=== PATIENT | male | born 1960 | race African-American/Black ===

== ENCOUNTER 2017-12-26 16:29 | Inpatient (IN) | payer OTHER ==
[2017-12-26 20:23] VITALS: BMI 22.1
--- NOTE | 2017-12-26 20:46 | HP ---
COWS - Scale Resting Pulse: 0= [place] 80 or Below Sweatin= Chills/Flushing Restless Observation: 1= Difficult to Sit Still Pupil Size: 0= Normal to Room Light Bone or Joint Aches: 1= Mild Discomfort Runny Nose/ Eye Tearin= Runny Nose/Eyes GI Upset > 30mins: 2= Nausea/Diarrhea Tremor Observation: 0= None Yawning Observation: 1= 1-2x During Session Anxiety or Irritability: 1=Feels Anxious/Irritable Goose Flesh Skin: 3=Piloerection COWS Score: 12 Admission ROS S - HPI Chief Complaint: "I am a dope fine, I need help, I don't feel well" Allergies/Adverse Reactions: Allergies Allergy/AdvReac Type Severity Reaction Status Date / Time No Known Allergies Allergy Verified 12/26/17 21:02 History of Present Illness: 57 yo male with hx IV heroin and nicotine dependence is here seeking detox. PMHX: Hep C, depression, insomnia. Denies suicidal / homicidal ideation or suicide attempts. Reports attempted detox at [facility] in 6 months ago , left AMA after 2 days. Denies history of seizure. Reports hx of frequent blackouts, last time, 2 weeks ago. Denies hx of overdose. Reports no after care plans after completing detox. Exam Limitations: No Limitations - Ebola screening Have you traveled outside of the country in the last 21 days: No (N) Have you had contact with anyone from an Ebola affected area: No Have you been sick,other than usual withdrawal symptoms: No Do you have a fever: No - Review of Systems Constitutional: Chills, Loss of Appetite, Changes in sleep EENT: reports: Dental Problems (multiple missing teeth, loose) Respiratory: reports: No Symptoms reported Cardiac: reports: No Symptoms Reported GI: reports: Diarrhea, Poor Appetite, Poor Fluid Intake : reports: No Symptoms Reported Musculoskeletal: reports: Joint Pain Integumentary: reports: No Symptoms Reported Neuro: reports: Tingling (left lower extremity) Endocrine: reports: No Symptoms Reported Hematology: reports: No Symptoms Reported Psychiatric: reports: No Sypmtoms Reported, Orientated x3, Agitated Other Systems: Reviewed and Negative Patient History - Patient Medical History Hx Anemia: No Hx Asthma: No Hx Chronic Obstructive Pulmonary Disease (COPD): No Hx Cancer: No Hx Cardiac Disorders: No Hx Hypertension: No Hx Hypercholesterolemia: No Hx Pacemaker: No HX Cerebrovascular Accident: No Hx Seizures: No Hx Dementia: No Hx Diabetes: No Hx Gastrointestinal Disorders: No Hx Liver Disease: Yes Hx Genitourinary Disorders: No Hx Sexually Transmitted Disorders: No Hx Renal Disease (ESRD): No Hx Thyroid Disease: No Hx Human Immunodeficiency Virus (HIV): No (declines testing today, unknown ) Hx Hepatitis C: Yes Hx Depression: Yes Hx Suicide Attempt: No Hx Bipolar Disorder: No Hx Schizophrenia: No - Patient Surgical History Past Surgical History: No Hx Neurologic Surgery: No Hx Cataract Extraction: No Hx Cardiac Surgery: No Hx Lung Surgery: No Hx Breast Surgery: No Hx Breast Biopsy: No Hx Abdominal Surgery: No Hx Appendectomy: No Hx Cholecystectomy: No Hx Genitourinary Surgery: No Hx Section: No Hx Orthopedic Surgery: No Hx Hysterectomy: No Anesthesia Reaction: No - PPD History Previous Implant?: No (reports prior hx of TB and tx ) PPD to be Administered?: No - Reproductive History Patient is a Female of Child Bearing Age (11 -55 yrs old): No - Smoking Cessation Smoking history: Current every day smoker Have you smoked in the past 12 months: Yes Aproximately how many cigarettes per day: 50 Hx Chewing Tobacco Use: No Initiated information on smoking cessation: Yes 'Breaking Loose' booklet given: 12/26/17 - Substance & Tx. History Hx Alcohol Use: No Hx Substance Use: No Substance Use Type: Heroin Hx Substance Use Treatment: Yes (Attempted detox at [facility] 6 months ago , left AMA ) - Substances Abused Heroin Route: Injection Frequency: Daily Amount used: 4 bags Age of first use: 34 Date of Last Use: 12/25/17 Family Disease History - Family Disease History Family History: Unable to Obtain Admission Physical Exam BHS - Vital Signs Vital Signs: Vital Signs - 24 hr 12/26/17 20:22 Temperature 97.8 F Pulse Rate 94 H Respiratory 18 Rate Blood Pressure 138/76 - Physical General Appearance: Yes: Disheveled, Thin, Irritable, Other (malodorous) HEENTM: Yes: EOMI, Hearing grossly Normal, Normal ENT Inspection, Normocephalic , Normal Voice, HAYLIE, Pharynx Normal, Tm's normal, Rhinorrhea, Other (dry mucous membranes, poor dentition) Respiratory: Yes: Chest Non-Tender, Lungs Clear, Normal Breath Sounds, No Respiratory Distress, No Accessory Muscle Use Neck: Yes: No masses,lesions,Nodules, Trachea in good position Breast: Yes: Breast Exam Deferred Cardiology: Yes: Regular Rhythm, Regular Rate Abdominal: Yes: Normal Bowel Sounds, Non Tender, Flat, Soft Genitourinary: Yes: Within Normal Limits Back: Yes: Muscle Spasm Musculoskeletal: Yes: Other (kyphosis , use cane for ambualtion) Extremities: Yes: Normal Capillary Refill, Normal Inspection, Normal Range of Motion, Non-Tender 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: 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, Fully Oriented, Alert, Motor Strength 5/5, Normal Response, Depressed Affect Integumentary: Yes: Normal Color, Moist, Track Castelan (bilateral forarms without signs of infection) Lymphatic: Yes: Within Normal Limits - Diagnostic (1) Opioid dependence with withdrawal Current Visit: Yes Status: Acute (2) Depressed mood Current Visit: Yes Status: Acute (3) Use of cane as ambulatory aid Current Visit: Yes Status: Acute (4) Nicotine dependence Current Visit: Yes Status: Acute Qualifiers: Nicotine product type: cigarettes (5) IV drug user Current Visit: Yes Status: Acute Cleared for Admission [facility] - Detox or Rehab [facility] Level of Care: Medically Managed Detox Regimen/Protocol: Methadone [facility] Breath Alcohol Content Breath Alcohol Content: 0 Urine Drug Screen - Results Drug Screen Negative: No Urine Drug Screen Results: DEB-Cocaine, OPI-Opiates
[2017-12-26] MEDS ORDERED: guaiFENesin/D-METHORPHAN HB 10 ML UNIT-DOSE CUPS PO PRN (21:02)
[2017-12-26] MEDS ORDERED: diazePAM 5 MG TABLET PO PRN (21:02)
[2017-12-26] MEDS ORDERED: IBUPROFEN 400 MG TABLET (FP) PO PRN (21:02)
[2017-12-26] MEDS ORDERED: NICOTINE POLACRILEX 4 MG GUM BUC PRN (21:02)
[2017-12-26] MEDS ORDERED: MAGNESIUM HYDROX 2400MG/30ML ORAL SUSPENSION 30 ML CUP PO PRN (21:02)
[2017-12-26] MEDS ORDERED: MAG HYDROX/AL HYDROX/SIMETH 30 ML UNIT-DOSE CUP PO PRN (21:02)
[2017-12-26] MEDS ORDERED: MAGNESIUM CITRATE 300 ML BOTTLE PO PRN (21:02)
[2017-12-26] MEDS ORDERED: ACETAMINOPHEN 325 MG TABLET (FP) PO PRN (21:02)
[2017-12-26] MEDS ORDERED: MENTHOL/PHENOL 1 EACH UD MM PRN (21:02)
[2017-12-26] MEDS ORDERED: hydrOXYzine PAMOATE 50 MG CAPSULE (FP) PO PRN (21:02)
[2017-12-26] MEDS ORDERED: P-EPHED 60MG/TRIPROLIDI 2.5MG TABLET PO PRN (21:02)
[2017-12-26] MEDS ORDERED: LOPERAMIDE HCL 2 MG CAPSULE PO PRN (21:02)
[2017-12-26] MEDS ORDERED: METHADONE HCL 10 MG TABLET (FOR DETOX USE ONLY) PO ONE ×2 (21:45→23:00)
[2017-12-26] MEDS ORDERED: THIAMINE HCL 100 MG TABLET (FP) PO SCH (22:00)
[2017-12-26] MEDS ORDERED: MELATONIN 5 MG TABLETS PO PRN (22:00)
[2017-12-27 05:10] LABS: URINE APPEARANCE CLEAR; URINE BILIRUBIN NEGATIVE (<2.0 mg/dL); URINE BLOOD NEGATIVE (NEGATIVE); URINE COLOR YELLOW; URINE GLUCOSE (UA) NEGATIVE (NEGATIVE); URINE KETONE NEGATIVE (NEGATIVE); URINE LEUK ESTERASE NEGATIVE (NEGATIVE); URINE NITRITE NEGATIVE (NEGATIVE); URINE PROTEIN NEGATIVE (NEGATIVE); URINE UROBILINOGEN NEGATIVE mg/dL (0.2-1.0)
[2017-12-27 09:30] VITALS: BP 123/79; PULSE 78; TEMP 97.8
[2017-12-27] MEDS ORDERED: NICOTINE 21 MG/24 HOURS TOPICAL PATCH TD SCH (10:00)
[2017-12-27] MEDS ORDERED: PRENATAL VITAMINS W/ FOLIC ACID TABLET (FP) PO SCH (10:00)
[2017-12-27] MEDS ORDERED: METHADONE HCL 10 MG TABLET (FOR DETOX USE ONLY) PO ONE (10:00)
[2017-12-27 10:13] LABS: HEMATOCRIT 41.7 % (35.4-49); MCH 30.8 pg (25.7-33.7); MCHC 33.6 g/dl (32.0-35.9); MEAN CELL VOLUME 91.7 fl (80-96); MEAN PLT VOLUME 8.2 fl (7.5-11.1); PLATELET COUNT 203 K/MM3 (134-434); RBC 4.55 M/mm3 (4.00-5.60); RDW 14.4 % (11.9-15.9); WHITE BLOOD COUNT 10.4 K/mm3 (4.0-10.0)
[2017-12-27 10:44] LABS: BLOOD UREA NITROGEN 18 mg/dL (7-18); CALCIUM 8.4 mg/dL (8.5-10.1); CHLORIDE 107 mmol/L (98-107); POTASSIUM 3.9 mmol/L (3.5-5.1); SODIUM 135 mmol/L (136-145)
[2017-12-27 10:54] LABS: ALBUMIN 3.1 g/dl (3.4-5.0); ALK PHOS 109 U/L (45-117); ANION GAP 1 (8-16); BILIRUBIN,TOTAL 0.3 mg/dL (0.2-1.0); CO2 27 mmol/L (21-32); CREATININE 0.9 mg/dL (0.7-1.3); GLUCOSE,RANDOM 86 mg/dL (74-106); SGOT/AST 23 U/L (15-37); SGPT/ALT 21 U/L (12-78); TOT PROT 7.3 g/dl (6.4-8.2)
[2017-12-27] MEDS ORDERED: ONDANSETRON *ODT* 4 MG TABLET SL PRN (11:02)
--- NOTE | 2017-12-27 11:19 | PN ---
BHS COWS - Scale Resting Pulse: 1= [place] 81-100 Sweatin= Chills/Flushing Restless Observation: 3= Extraneous Movement Pupil Size: 0= Normal to Room Light Bone or Joint Aches: 4=Acute Joint/Muscle Pain Runny Nose/ Eye Tearin= Nasal Congestion GI Upset > 30mins: 1= Stomach Cramp Tremor Observation of Outstretched Hands: 1= Tremor Lucinda, Not Seen Yawning Observation: 1= 1-2x During Session Anxiety or Irritability: 2=Irritable/Anxious Goose Flesh Skin: 0=Smooth Skin COWS Score: 15 S Progress Note (SOAP) Subjective: PT C/O "TERRIBLE LEG CRAMPS', ANXIETY,SWEATS,NAUSEA/VOMITING, INTERMITTENT SLEEP. Objective: 12/27/17 11:19 Vital Signs Temperature 97.8 F 12/27/17 09:28 Pulse Rate 78 12/27/17 09:28 Respiratory Rate 20 12/27/17 09:28 Blood Pressure 123/79 12/27/17 09:28 O2 Sat by Pulse Oximetry (%) Laboratory Last Values WBC 10.4 K/mm3 (4.0-10.0) H 12/27/17 07:00 RBC 4.55 M/mm3 (4.00-5.60) 12/27/17 07:00 Hgb 14.0 GM/dL (11.7-16.9) 12/27/17 07:00 Hct 41.7 % (35.4-49) 12/27/17 07:00 MCV 91.7 fl (80-96) 12/27/17 07:00 MCH 30.8 pg (25.7-33.7) 12/27/17 07:00 MCHC 33.6 g/dl (32.0-35.9) 12/27/17 07:00 RDW 14.4 % (11.9-15.9) 12/27/17 07:00 Plt Count 203 K/MM3 (134-434) 12/27/17 07:00 MPV 8.2 fl (7.5-11.1) 12/27/17 07:00 Sodium 135 mmol/L (136-145) L 12/27/17 07:00 Potassium 3.9 mmol/L (3.5-5.1) 12/27/17 07:00 Chloride 107 mmol/L (98-107) 12/27/17 07:00 Carbon Dioxide 27 mmol/L (21-32) 12/27/17 07:00 Anion Gap 1 (8-16) L 12/27/17 07:00 BUN 18 mg/dL (7-18) 12/27/17 07:00 Creatinine 0.9 mg/dL (0.7-1.3) 12/27/17 07:00 Creat Clearance w eGFR > 60 (>60) 12/27/17 07:00 Random Glucose 86 mg/dL (74-106) 12/27/17 07:00 Calcium 8.4 mg/dL (8.5-10.1) L 12/27/17 07:00 Total Bilirubin 0.3 mg/dL (0.2-1.0) 12/27/17 07:00 AST 23 U/L (15-37) 12/27/17 07:00 ALT 21 U/L (12-78) 12/27/17 07:00 Alkaline Phosphatase 109 U/L (45-117) 12/27/17 07:00 Total Protein 7.3 g/dl (6.4-8.2) 12/27/17 07:00 Albumin 3.1 g/dl (3.4-5.0) L 12/27/17 07:00 Urine Color Yellow 12/27/17 00:42 Urine Appearance Clear 12/27/17 00:42 Urine pH 6.0 (5.0-8.0) 12/27/17 00:42 Ur Specific [place] 1.017 (1.001-1.035) 12/27/17 00:42 Urine Protein Negative (NEGATIVE) 12/27/17 00:42 Urine Glucose (UA) Negative (NEGATIVE) 12/27/17 00:42 Urine Ketones Negative (NEGATIVE) 12/27/17 00:42 Urine Blood Negative (NEGATIVE) 12/27/17 00:42 Urine Nitrite Negative (NEGATIVE) 12/27/17 00:42 Urine Bilirubin Negative (<2.0 mg/dL) 12/27/17 00:42 Urine Urobilinogen Negative mg/dL (0.2-1.0) 12/27/17 00:42 Ur Leukocyte Esterase Negative (NEGATIVE) 12/27/17 00:42 Assessment: 12/27/17 11:20 WITHDRAWAL SX Plan: CONTINUE DETOX ZOFRAN PRN INCREASE PO FLUIDS
--- NOTE | 2017-12-27 13:07 | EKG ---
Test Reason : Blood Pressure : / mmHG Vent. Rate : 082 BPM Atrial Rate : 082 BPM P-R Int : 114 ms QRS Dur : 086 ms QT Int : 378 ms P-R-T Axes : 071 068 057 degrees QTc Int : 441 ms NORMAL SINUS RHYTHM POSSIBLE LEFT ATRIAL ENLARGEMENT BORDERLINE ECG NO PREVIOUS ECGS AVAILABLE Confirmed by YAZMIN RAINEY MD ([id number]) on 12/27/2017 1:06:47 PM Referred By: Confirmed By:YAZMIN RAINEY MD
--- NOTE | 2017-12-27 15:11 | DS ---
[facility] Detox Discharge Summary Admission Date: 12/26/17 Discharge Date: 12/27/17 - History Present History: Opioid Dependence Additional Comments: PT DECLINED TO CONTINUE WITH DETOX. WHEN ASKED HE SAYS "GET ME OUT OF HERE". PT WAS DIFFICULT TO BE ENGAGED IN DISCUSSING HIS CARE. Pertinent Past History: PLEASE SEE DX BELOW - Physical Exam Results Vital Signs: Vital Signs Temperature 97.8 F 12/27/17 09:28 Pulse Rate 78 12/27/17 09:28 Respiratory Rate 20 12/27/17 09:28 Blood Pressure 123/79 12/27/17 09:28 O2 Sat by Pulse Oximetry (%) Pertinent Admission Physical Exam Findings: WITHDRAWAL SX Laboratory Last Values WBC 10.4 K/mm3 (4.0-10.0) H 12/27/17 07:00 RBC 4.55 M/mm3 (4.00-5.60) 12/27/17 07:00 Hgb 14.0 GM/dL (11.7-16.9) 12/27/17 07:00 Hct 41.7 % (35.4-49) 12/27/17 07:00 MCV 91.7 fl (80-96) 12/27/17 07:00 MCH 30.8 pg (25.7-33.7) 12/27/17 07:00 MCHC 33.6 g/dl (32.0-35.9) 12/27/17 07:00 RDW 14.4 % (11.9-15.9) 12/27/17 07:00 Plt Count 203 K/MM3 (134-434) 12/27/17 07:00 MPV 8.2 fl (7.5-11.1) 12/27/17 07:00 Sodium 135 mmol/L (136-145) L 12/27/17 07:00 Potassium 3.9 mmol/L (3.5-5.1) 12/27/17 07:00 Chloride 107 mmol/L (98-107) 12/27/17 07:00 Carbon Dioxide 27 mmol/L (21-32) 12/27/17 07:00 Anion Gap 1 (8-16) L 12/27/17 07:00 BUN 18 mg/dL (7-18) 12/27/17 07:00 Creatinine 0.9 mg/dL (0.7-1.3) 12/27/17 07:00 Creat Clearance w eGFR > 60 (>60) 12/27/17 07:00 Random Glucose 86 mg/dL (74-106) 12/27/17 07:00 Calcium 8.4 mg/dL (8.5-10.1) L 12/27/17 07:00 Total Bilirubin 0.3 mg/dL (0.2-1.0) 12/27/17 07:00 AST 23 U/L (15-37) 12/27/17 07:00 ALT 21 U/L (12-78) 12/27/17 07:00 Alkaline Phosphatase 109 U/L (45-117) 12/27/17 07:00 Total Protein 7.3 g/dl (6.4-8.2) 12/27/17 07:00 Albumin 3.1 g/dl (3.4-5.0) L 12/27/17 07:00 Urine Color Yellow 12/27/17 00:42 Urine Appearance Clear 12/27/17 00:42 Urine pH 6.0 (5.0-8.0) 12/27/17 00:42 Ur Specific [place] 1.017 (1.001-1.035) 12/27/17 00:42 Urine Protein Negative (NEGATIVE) 12/27/17 00:42 Urine Glucose (UA) Negative (NEGATIVE) 12/27/17 00:42 Urine Ketones Negative (NEGATIVE) 12/27/17 00:42 Urine Blood Negative (NEGATIVE) 12/27/17 00:42 Urine Nitrite Negative (NEGATIVE) 12/27/17 00:42 Urine Bilirubin Negative (<2.0 mg/dL) 12/27/17 00:42 Urine Urobilinogen Negative mg/dL (0.2-1.0) 12/27/17 00:42 Ur Leukocyte Esterase Negative (NEGATIVE) 12/27/17 00:42 - Treatment Hospital Course: Discharged Condition Good - Medication Discharge Medications: Ambulatory Orders NK [No Known Home Medication] 12/26/17 - Diagnosis (1) Nicotine dependence Status: Acute Qualifiers: Nicotine product type: cigarettes Substance use status: in withdrawal Qualified Code(s): F17.213 - Nicotine dependence, cigarettes, with withdrawal (2) Opioid dependence with withdrawal Status: Acute (3) Use of cane as ambulatory aid Status: Acute - AMA Did Patient Leave Against Medical Advice: Yes (AMA)
[2017-12-28] MEDS ORDERED: METHADONE HCL 5 MG TABLET (FOR DETOX USE ONLY) PO ONE (10:00)
[2017-12-29] MEDS ORDERED: METHADONE HCL 5 MG TABLET (FOR DETOX USE ONLY) PO ONE (10:00)
[2017-12-30] MEDS ORDERED: METHADONE HCL 10 MG TABLET (FOR DETOX USE ONLY) PO ONE (10:00)
[2017-12-31] MEDS ORDERED: METHADONE HCL 5 MG TABLET (FOR DETOX USE ONLY) PO ONE (06:00)
== END 2017-12-27 12:40 | disposition left against medical advice (07) | DRG 770 ==
LOC: YASAS 16:29 → Y3N 21:14
PROVIDERS: ADMIT Internal Medicine; ATTEND Internal Medicine
PROC: HZ2ZZZZ Detoxification Services for Substance Abuse Treatment (ICD-10-PCS; principal; 2017-12-26)
DX: F11.23 Opioid dependence with withdrawal (principal); F17.213 Nicotine dependence, cigarettes, with withdrawal; F32.9 Major depressive disorder, single episode, unspecified; B18.2 Chronic viral hepatitis C; R76.11 Nonspecific reaction to tuberculin skin test without active tuberculosis; R26.89 Other abnormalities of gait and mobility; Z99.89 Dependence on other enabling machines and devices; Z59.0 Homelessness
CPT/HCPCS: 36415; 80053; 81003; 85027; 86593; 93005; 93010

== ENCOUNTER 2018-03-01 12:00 | Inpatient (IN) | payer OTHER ==
[2018-03-01 12:52] VITALS: BMI 20.9
--- NOTE | 2018-03-01 15:19 | HP ---
COWS - Scale Resting Pulse: 1= [place] 81-100 Sweatin= Chills/Flushing Restless Observation: 1= Difficult to Sit Still Pupil Size: 0= Normal to Room Light Bone or Joint Aches: 2= Severe Diffuse Aches Runny Nose/ Eye Tearin= Runny Nose/Eyes GI Upset > 30mins: 2= Nausea/Diarrhea Tremor Observation: 2= Slight Tremor Visible Yawning Observation: 2= >3x During Session Anxiety or Irritability: 2=Irritable/Anxious Goose Flesh Skin: 0=Smooth Skin COWS Score: 15 CIWA Score - CIWA Score Nausea/Vomitin-Mild Nausea/No Vomiting Muscle Tremors: 4-Moderate,w/Arms Extend Anxiety: 4-Mod. Anxious/Guarded Agitation: 4-Moderately Restless Paroxysmal Sweats: 1-Minimal Palms Moist Orientation: 1-Uncertain about Date Tacttile Disturbances: 2-Mild Itch/Numbness/Burn Auditory Disturbances: 0-None Visual Disturbances: 0-None Headache: 2-Mild CIWA-Ar Total Score: 19 Admission ROS BHS - HPI Chief Complaint: alcohol and opiate withdrawal sx Allergies/Adverse Reactions: Allergies Allergy/AdvReac Type Severity Reaction Status Date / Time No Known Allergies Allergy Verified 03/01/18 15:16 History of Present Illness: 57 years old male with long history of alcohol opiate nicotine dependence has positive ppd depression is admitted to detox Exam Limitations: No Limitations - Ebola screening Have you traveled outside of the country in the last 21 days: No (N) Have you had contact with anyone from an Ebola affected area: No Have you been sick,other than usual withdrawal symptoms: No Do you have a fever: No - Review of Systems Constitutional: Loss of Appetite, Changes in sleep, Unintentional Wgt. Loss, Unexplained wgt Loss EENT: reports: No Symptoms Reported Respiratory: reports: No Symptoms reported Cardiac: reports: No Symptoms Reported GI: reports: Nausea, Poor Appetite, Poor Fluid Intake, Abdominal cramping : reports: No Symptoms Reported Musculoskeletal: reports: Back Pain, Muscle Pain, Neck Pain Integumentary: reports: Change in Color (iv heroin) Neuro: reports: Tremors Endocrine: reports: No Symptoms Reported Hematology: reports: No Symptoms Reported Psychiatric: reports: Judgement Intact, Anxious, Depressed Other Systems: Reviewed and Negative Patient History - Patient Medical History Hx Anemia: No Hx Asthma: No Hx Chronic Obstructive Pulmonary Disease (COPD): No Hx Cancer: No Hx Cardiac Disorders: No Hx Congestive Heart Failure: No Hx Hypertension: No Hx Hypercholesterolemia: No Hx Pacemaker: No HX Cerebrovascular Accident: No Hx Seizures: No Hx Dementia: No Hx Diabetes: No Hx Gastrointestinal Disorders: No Hx Liver Disease: Yes Hx Genitourinary Disorders: No Hx Sexually Transmitted Disorders: No Hx Renal Disease (ESRD): No Hx Thyroid Disease: No Hx Human Immunodeficiency Virus (HIV): No (declines testing today, unknown ) Hx Hepatitis C: Yes (treated) Hx Depression: Yes Hx Suicide Attempt: No Hx Bipolar Disorder: No Hx Schizophrenia: No - Patient Surgical History Past Surgical History: No Hx Neurologic Surgery: No Hx Cataract Extraction: No Hx Cardiac Surgery: No Hx Lung Surgery: No Hx Breast Surgery: No Hx Breast Biopsy: No Hx Abdominal Surgery: No Hx Appendectomy: No Hx Cholecystectomy: No Hx Genitourinary Surgery: No Hx Orthopedic Surgery: No - PPD History Previous Implant?: Yes Documented Results: Positive w/o proof Implanted On Prior R Admission?: No PPD to be Administered?: No - Smoking Cessation Smoking history: Current every day smoker Have you smoked in the past 12 months: Yes Aproximately how many cigarettes per day: 40 Cigars Per Day: 0 Hx Chewing Tobacco Use: No Initiated information on smoking cessation: Yes 'Breaking Loose' booklet given: 03/01/18 - Substance & Tx. History Hx Alcohol Use: Yes Hx Substance Use: Yes Substance Use Type: Alcohol, Cocaine, Opiates Hx Substance Use Treatment: Yes (12/2017 [facility] - Substances Abused Heroin Route: Injection Amount used: 7 bags Age of first use: 34 Date of Last Use: 02/28/18 Crack Route: Smoking Frequency: 3-6 times per week Amount used: $30 Age of first use: 34 Date of Last Use: 02/28/18 Alcohol-beer Route: Oral Frequency: 3-6 times per week Amount used: 1 (40 oz.) Age of first use: 18 Date of Last Use: 02/28/18 Family Disease History - Family Disease History Family Disease History: Diabetes: Brother, Heart Disease: Mother (), Other: Father (), Mother Admission Physical Exam BHS - Vital Signs Vital Signs: Vital Signs - 24 hr 06/07/18 12:50 Temperature 98.2 F Pulse Rate 93 H Respiratory 19 Rate Blood Pressure 130/82 - Physical General Appearance: Yes: Appropriately Dressed, Mild Distress, Thin, Tremorous, Irritable, Sweating, Anxious HEENTM: Yes: Hearing grossly Normal, Normocephalic, Normal Voice Respiratory: Yes: Chest Non-Tender, Lungs Clear, Normal Breath Sounds, No Respiratory Distress, No Accessory Muscle Use Neck: Yes: Supple, Trachea in good position Breast: Yes: Breasts Symetrical, No Discharge Cardiology: Yes: Regular Rhythm, S1, S2, Tachycardia Abdominal: Yes: Normal Bowel Sounds, Non Tender, Flat Genitourinary: Yes: Within Normal Limits Back: Yes: Normal Inspection Musculoskeletal: Yes: Gait Steady, Back pain, Muscle Pain Extremities: Yes: Normal Inspection, Non-Tender, Tremors 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: Alert, Normal Response, Depressed Affect Integumentary: Yes: Warm, Track Castelan Lymphatic: Yes: Within Normal Limits - Diagnostic (1) Alcohol dependence with uncomplicated withdrawal Current Visit: Yes Status: Acute (2) Hepatitis C Current Visit: Yes Status: Resolved Qualifiers: Viral hepatitis chronicity: carrier Qualified Code(s): B18.2 - Chronic viral hepatitis C (3) Weight loss Current Visit: Yes Status: Acute (4) Dry skin dermatitis Current Visit: Yes Status: Chronic (5) Skin abrasion Current Visit: Yes Status: Acute (6) Positive PPD, treated Current Visit: Yes Status: Acute (7) Opioid dependence with withdrawal Current Visit: Yes Status: Acute (8) Use of cane as ambulatory aid Current Visit: Yes Status: Chronic (9) Spine deformity, acquired Current Visit: Yes Status: Chronic (10) Sprain of other parts of lumbar spine and pelvis, sequela Current Visit: Yes Status: Resolved Comment: unknown year possible 2016 Cleared for Admission [facility] - Detox or Rehab [facility] Level of Care: Medically Managed Detox Regimen/Protocol: Methadone/Librium S Breath Alcohol Content Breath Alcohol Content: 0 Urine Drug Screen - Control Is Test Valid: Yes - Results Drug Screen Negative: No Urine Drug Screen Results: DEB-Cocaine, OPI-Opiates
[2018-03-01] MEDS ORDERED: IBUPROFEN 400 MG TABLET (FP) PO PRN (15:20)
[2018-03-01] MEDS ORDERED: P-EPHED 60MG/TRIPROLIDI 2.5MG TABLET PO PRN (15:20)
[2018-03-01] MEDS ORDERED: ACETAMINOPHEN 325 MG TABLET (FP) PO PRN (15:20)
[2018-03-01] MEDS ORDERED: guaiFENesin/D-METHORPHAN HB 10 ML UNIT-DOSE CUPS PO PRN (15:20)
[2018-03-01] MEDS ORDERED: MENTHOL/PHENOL 1 EACH UD MM PRN (15:20)
[2018-03-01] MEDS ORDERED: LOPERAMIDE HCL 2 MG CAPSULE PO PRN (15:20)
[2018-03-01] MEDS ORDERED: chlordiazePOXIDE HCL 25 MG CAPSULE PO PRN (15:20)
[2018-03-01] MEDS ORDERED: NICOTINE POLACRILEX 4 MG GUM BC PRN (15:20)
[2018-03-01] MEDS ORDERED: MAGNESIUM HYDROX 2400MG/30ML ORAL SUSPENSION 30 ML CUP PO PRN (15:20)
[2018-03-01] MEDS ORDERED: MAGNESIUM CITRATE 300 ML BOTTLE PO PRN (15:20)
[2018-03-01] MEDS ORDERED: MAG HYDROX/AL HYDROX/SIMETH 30 ML UNIT-DOSE CUP PO PRN (15:20)
[2018-03-01] MEDS ORDERED: COLLOIDAL OATMEAL 1 BAR EACH TP PRN (15:46)
[2018-03-01] MEDS ORDERED: METHADONE HCL 10 MG TABLET (FOR DETOX USE ONLY) PO ONE ×2 (16:30→23:00)
[2018-03-01] MEDS ORDERED: METHADONE HCL 10 MG TABLET (FOR DETOX USE ONLY) ONE (18:53)
[2018-03-01] MEDS: chlordiazePOXIDE HCL 25 MG CAPSULE PO SCH ×2 (18:56→22:50)
[2018-03-01] MEDS: BACLOFEN 10 MG TABLET (FP) PO SCH ×2 (18:58→22:43)
[2018-03-01] MEDS: TOBRAMYCIN/DEXAMETHASONE OPHTH. OINTMENT 1 TUBE OD SCH ×2 (19:01→22:50)
[2018-03-01] MEDS: LIDOCAINE 5% TOPICAL PATCH TP SCH (19:02)
[2018-03-01] MEDS: NICOTINE 21 MG/24 HOURS TOPICAL PATCH TD SCH (19:03)
[2018-03-01] MEDS ORDERED: MELATONIN 5 MG TABLETS PO PRN (22:00)
[2018-03-01] MEDS: THIAMINE HCL 100 MG TABLET (FP) PO SCH (22:43)
[2018-03-01] MEDS: LIDOCAINE PATCH REMOVAL MC SCH (22:52)
[2018-03-01] MEDS: MINERAL OIL/PETROLAT/WATER TOPICAL CREAM 113 GM JAR TP SCH (22:52)
[2018-03-01 23:21] LABS: URINE APPEARANCE CLEAR; URINE BILIRUBIN NEGATIVE (<2.0 mg/dL); URINE BLOOD NEGATIVE (NEGATIVE); URINE COLOR AMBER; URINE GLUCOSE (UA) NEGATIVE (NEGATIVE); URINE KETONE NEGATIVE (NEGATIVE); URINE LEUK ESTERASE NEGATIVE (NEGATIVE); URINE NITRITE NEGATIVE (NEGATIVE)
[2018-03-01 23:30] LABS: URINE PROTEIN 1+ (NEGATIVE)
[2018-03-01 23:32] LABS: EPI CELLS RARE /HPF (FEW); URINE HYALINE CAST 1 /lpf; URINE MUCUS FEW
[2018-03-02] MEDS: chlordiazePOXIDE HCL 25 MG CAPSULE PO SCH ×4 (06:04→22:42)
[2018-03-02] MEDS: BACLOFEN 10 MG TABLET (FP) PO SCH ×3 (06:04→22:42)
[2018-03-02] MEDS ORDERED: METHADONE HCL 10 MG TABLET (FOR DETOX USE ONLY) PO SCH (10:00)
[2018-03-02 10:23] LABS: HEMOGLOBIN 13.1 GM/dL (11.7-16.9); MCH 31.4 pg (25.7-33.7); MCHC 33.6 g/dl (32.0-35.9); MEAN CELL VOLUME 93.4 fl (80-96); MEAN PLT VOLUME 8.6 fl (7.5-11.1); PLATELET COUNT 202 K/MM3 (134-434); RBC 4.17 M/mm3 (4.00-5.60); RDW 14.4 % (11.9-15.9); WHITE BLOOD COUNT 6.9 K/mm3 (4.0-10.0)
[2018-03-02] MEDS: TOBRAMYCIN/DEXAMETHASONE OPHTH. OINTMENT 1 TUBE OD SCH ×4 (10:26→22:42)
[2018-03-02 10:39] LABS: ALBUMIN 3.2 g/dl (3.4-5.0); ANION GAP 7 (8-16); BLOOD UREA NITROGEN 18 mg/dL (7-18); CALCIUM 8.5 mg/dL (8.5-10.1); CHLORIDE 103 mmol/L (98-107); CO2 26 mmol/L (21-32); GLUCOSE,RANDOM 144 mg/dL (74-106); SGOT/AST 24 U/L (15-37); SGPT/ALT 23 U/L (12-78); SODIUM 136 mmol/L (136-145)
[2018-03-02 10:41] LABS: ALK PHOS 119 U/L (45-117); BILIRUBIN,TOTAL 0.4 mg/dL (0.2-1.0); TOT PROT 7.5 g/dl (6.4-8.2)
[2018-03-02] MEDS: LIDOCAINE 5% TOPICAL PATCH TP SCH (12:23)
[2018-03-02] MEDS: PRENATAL VITAMINS W/ FOLIC ACID TABLET (FP) PO SCH (12:24)
[2018-03-02] MEDS: NICOTINE 21 MG/24 HOURS TOPICAL PATCH TD SCH (12:26)
--- NOTE | 2018-03-02 12:48 | PN ---
[facility] CIWA - CIWA Score Nausea/Vomitin-No Nausea/No Vomiting Muscle Tremors: None Anxiety: 5 Agitation: 3 Paroxysmal Sweats: 3 Orientation: 0-Oriented Tacttile Disturbances: 3-Moderate Itch/Numb/Burn Auditory Disturbances: 2-Mild Harshness/Frighten Visual Disturbances: 2-Mild Sensitivity Headache: 0-None Present CIWA-Ar Total Score: 18 BHS COWS - Scale Resting Pulse: 1= [place] 81-100 Sweatin= Chills/Flushing Restless Observation: 0= Sits Still Pupil Size: 0= Normal to Room Light Bone or Joint Aches: 4=Acute Joint/Muscle Pain Runny Nose/ Eye Tearin= Nasal Congestion GI Upset > 30mins: 0= None Tremor Observation of Outstretched Hands: 0= None Yawning Observation: 1= 1-2x During Session Anxiety or Irritability: 4=Extreme Anxiety Goose Flesh Skin: 3=Piloerection COWS Score: 15 S Progress Note (SOAP) Subjective: Stomach Cramping, Fatigue, Body Aches, Anxious. Objective: PATIENT A & O X 3, OBSERVED AMBULATING ON UNIT WITH ASSISTANCE OF A CANE. NO ACUTE DISTRESS. 03/02/18 12:46 Vital Signs Temperature 96.7 F L 03/02/18 09:04 Pulse Rate 95 H 03/02/18 09:04 Respiratory Rate 16 03/02/18 09:04 Blood Pressure 139/90 03/02/18 09:04 O2 Sat by Pulse Oximetry (%) Laboratory Tests 03/01/18 03/02/18 03/02/18 23:10 06:00 06:00 WBC 6.9 D RBC 4.17 Hgb 13.1 Hct 39.0 MCV 93.4 MCH 31.4 MCHC 33.6 RDW 14.4 Plt Count 202 MPV 8.6 Sodium 136 Potassium 4.0 Chloride 103 Carbon Dioxide 26 Anion Gap 7 L BUN 18 Creatinine 1.0 Creat Clearance w eGFR > 60 Random Glucose 144 H D Calcium 8.5 Total Bilirubin 0.4 D AST 24 ALT 23 Alkaline Phosphatase 119 H Total Protein 7.5 Albumin 3.2 L Urine Color Thuy Urine Appearance Clear Urine pH 5.0 Ur Specific [place] 1.033 Urine Protein 1+ H Urine Glucose (UA) Negative Urine Ketones Negative Urine Blood Negative Urine Nitrite Negative Urine Bilirubin Negative Urine Urobilinogen 2.0 Ur Leukocyte Esterase Negative Urine WBC (Auto) 1 Urine RBC (Auto) <1 Ur Epithelial Cells Rare Hyaline Casts 1 Urine Mucus Few RPR Titer 03/02/18 06:00 WBC RBC Hgb Hct MCV MCH MCHC RDW Plt Count MPV Sodium Potassium Chloride Carbon Dioxide Anion Gap BUN Creatinine Creat Clearance w eGFR Random Glucose Calcium Total Bilirubin AST ALT Alkaline Phosphatase Total Protein Albumin Urine Color Urine Appearance Urine pH Ur Specific [place] Urine Protein Urine Glucose (UA) Urine Ketones Urine Blood Urine Nitrite Urine Bilirubin Urine Urobilinogen Ur Leukocyte Esterase Urine WBC (Auto) Urine RBC (Auto) Ur Epithelial Cells Hyaline Casts Urine Mucus RPR Titer Nonreactive LABS NOTED. Assessment: 03/02/18 12:47 WITHDRAWAL SYMPTOMS. Plan: CONTINUE DETOX.
--- NOTE | 2018-03-02 14:43 | CONSULT ---
[facility] Psychiatric Consult - Data Date of interview: 03/02/18 Admission source: [facility] Identifying data: Patient is approached on THREE occasions for psychiatric evaluation.Mr Henry refused.Nursing staff is made aware.
[2018-03-02] MEDS: THIAMINE HCL 100 MG TABLET (FP) PO SCH (22:42)
[2018-03-02] MEDS: MINERAL OIL/PETROLAT/WATER TOPICAL CREAM 113 GM JAR TP SCH (22:42)
[2018-03-02] MEDS: LIDOCAINE PATCH REMOVAL MC SCH (22:43)
[2018-03-03] MEDS: chlordiazePOXIDE HCL 25 MG CAPSULE PO SCH ×2 (05:52→11:01)
[2018-03-03] MEDS: BACLOFEN 10 MG TABLET (FP) PO SCH ×3 (05:53→23:05)
[2018-03-03] MEDS: TOBRAMYCIN/DEXAMETHASONE OPHTH. OINTMENT 1 TUBE OD SCH ×4 (11:00→23:05)
[2018-03-03] MEDS: PRENATAL VITAMINS W/ FOLIC ACID TABLET (FP) PO SCH (11:00)
[2018-03-03] MEDS: METHADONE HCL 5 MG TABLET (FOR DETOX USE ONLY) PO SCH (11:03)
[2018-03-03] MEDS: NICOTINE 21 MG/24 HOURS TOPICAL PATCH TD SCH (12:00)
[2018-03-03] MEDS: LIDOCAINE 5% TOPICAL PATCH TP SCH (12:00)
--- NOTE | 2018-03-03 14:52 | EKG ---
Test Reason : Blood Pressure : / mmHG Vent. Rate : 088 BPM Atrial Rate : 088 BPM P-R Int : 126 ms QRS Dur : 066 ms QT Int : 326 ms P-R-T Axes : 043 063 045 degrees QTc Int : 394 ms NORMAL SINUS RHYTHM POSSIBLE LEFT ATRIAL ENLARGEMENT SEPTAL INFARCT , AGE UNDETERMINED ABNORMAL ECG WHEN COMPARED WITH ECG OF 26-DEC-2017 23:22, ST NOW DEPRESSED IN INFERIOR LEADS Confirmed by MD Ry, Giovani ([id number]) on 03/03/2018 2:51:36 PM Referred By: Confirmed By:Giovani Raza MD
--- NOTE | 2018-03-03 16:32 | PN ---
S CIWA - CIWA Score Nausea/Vomitin-No Nausea/No Vomiting Muscle Tremors: 3 Anxiety: 4-Mod. Anxious/Guarded Agitation: 1-Slight > Activity Paroxysmal Sweats: 2 Orientation: 2-Disoriented Date<2 days Tacttile Disturbances: 2-Mild Itch/Numbness/Burn Auditory Disturbances: 0-None Visual Disturbances: 2-Mild Sensitivity Headache: 0-None Present CIWA-Ar Total Score: 16 BHS COWS - Scale Resting Pulse: 0= [place] 80 or Below Sweatin= Chills/Flushing Restless Observation: 0= Sits Still Pupil Size: 0= Normal to Room Light Bone or Joint Aches: 4=Acute Joint/Muscle Pain Runny Nose/ Eye Tearin= None GI Upset > 30mins: 1= Stomach Cramp Tremor Observation of Outstretched Hands: 2= Slight Tremor Visible Yawning Observation: 1= 1-2x During Session Anxiety or Irritability: 2=Irritable/Anxious Goose Flesh Skin: 3=Piloerection COWS Score: 14 BHS Progress Note (SOAP) Subjective: Fatigue, Tremors, Anxious, Sweating. Objective: PATIENT A & O X 2 (UNCERTAIN ABOUT CURRENT DAY / DATE). NO ACUTE DISTRESS. 03/03/18 16:30 Vital Signs Temperature 98.2 F 03/03/18 10:01 Pulse Rate 78 03/03/18 10:01 Respiratory Rate 18 03/03/18 10:01 Blood Pressure 116/83 03/03/18 10:01 O2 Sat by Pulse Oximetry (%) Laboratory Tests 03/01/18 03/01/18 03/02/18 10:00 23:10 06:00 WBC 6.9 D RBC 4.17 Hgb 13.1 Hct 39.0 MCV 93.4 MCH 31.4 MCHC 33.6 RDW 14.4 Plt Count 202 MPV 8.6 Sodium Potassium Chloride Carbon Dioxide Anion Gap BUN Creatinine Creat Clearance w eGFR Random Glucose Calcium Total Bilirubin AST ALT Alkaline Phosphatase Total Protein Albumin Urine Color Thuy Urine Appearance Clear Urine pH 5.0 Ur Specific [place] 1.033 Urine Protein 1+ H Urine Glucose (UA) Negative Urine Ketones Negative Urine Blood Negative Urine Nitrite Negative Urine Bilirubin Negative Urine Urobilinogen 2.0 Ur Leukocyte Esterase Negative Urine WBC (Auto) 1 Urine RBC (Auto) <1 Ur Epithelial Cells Rare Hyaline Casts 1 Urine Mucus Few RPR Titer HIV 1&2 Antibody Screen Negative HIV P24 Antigen Negative 03/02/18 03/02/18 06:00 06:00 WBC RBC Hgb Hct MCV MCH MCHC RDW Plt Count MPV Sodium 136 Potassium 4.0 Chloride 103 Carbon Dioxide 26 Anion Gap 7 L BUN 18 Creatinine 1.0 Creat Clearance w eGFR > 60 Random Glucose 144 H D Calcium 8.5 Total Bilirubin 0.4 D AST 24 ALT 23 Alkaline Phosphatase 119 H Total Protein 7.5 Albumin 3.2 L Urine Color Urine Appearance Urine pH Ur Specific [place] Urine Protein Urine Glucose (UA) Urine Ketones Urine Blood Urine Nitrite Urine Bilirubin Urine Urobilinogen Ur Leukocyte Esterase Urine WBC (Auto) Urine RBC (Auto) Ur Epithelial Cells Hyaline Casts Urine Mucus RPR Titer Nonreactive HIV 1&2 Antibody Screen HIV P24 Antigen LABS NOTED. Assessment: 03/03/18 16:31 WITHDRAWAL SYMPTOMS. Plan: CONTINUE DETOX. INCREASE DAILY PO FLUID INTAKE.
[2018-03-03] MEDS: chlordiazePOXIDE 5 MG CAPSULE PO SCH ×2 (17:44→23:05)
[2018-03-03] MEDS: LIDOCAINE PATCH REMOVAL MC SCH (23:04)
[2018-03-03] MEDS: MINERAL OIL/PETROLAT/WATER TOPICAL CREAM 113 GM JAR TP SCH (23:04)
[2018-03-03] MEDS: THIAMINE HCL 100 MG TABLET (FP) PO SCH (23:05)
[2018-03-04] MEDS: BACLOFEN 10 MG TABLET (FP) PO SCH ×3 (05:56→22:39)
[2018-03-04] MEDS: chlordiazePOXIDE 5 MG CAPSULE PO SCH ×2 (05:56→10:32)
[2018-03-04] MEDS: PRENATAL VITAMINS W/ FOLIC ACID TABLET (FP) PO SCH (10:32)
[2018-03-04] MEDS: LIDOCAINE 5% TOPICAL PATCH TP SCH (10:32)
[2018-03-04] MEDS: NICOTINE 21 MG/24 HOURS TOPICAL PATCH TD SCH (10:32)
[2018-03-04] MEDS: METHADONE HCL 5 MG TABLET (FOR DETOX USE ONLY) PO SCH (10:32)
[2018-03-04] MEDS: TOBRAMYCIN/DEXAMETHASONE OPHTH. OINTMENT 1 TUBE OD SCH ×4 (10:32→22:39)
--- NOTE | 2018-03-04 11:55 | PN ---
BHS Progress Note (SOAP) Subjective: PT SEEN IN BED DURING ROUNDS. C/O BODY ACHES AND SWEATS. IRRITABLE AND AGITATE WITH ANGRY OURTBURSTS TO QUESTIONS ABOUT WITHDRAWAL SX. Objective: 03/04/18 11:53 Vital Signs 03/04/18 03/04/18 06:30 09:43 Temperature 96.7 F L Pulse Rate 83 Respiratory 18 18 Rate Blood Pressure 104/61 Laboratory Tests 03/01/18 03/01/18 03/02/18 10:00 23:10 06:00 WBC 6.9 D RBC 4.17 Hgb 13.1 Hct 39.0 MCV 93.4 MCH 31.4 MCHC 33.6 RDW 14.4 Plt Count 202 MPV 8.6 Sodium Potassium Chloride Carbon Dioxide Anion Gap BUN Creatinine Creat Clearance w eGFR Random Glucose Calcium Total Bilirubin AST ALT Alkaline Phosphatase Total Protein Albumin Urine Color Thuy Urine Appearance Clear Urine pH 5.0 Ur Specific [place] 1.033 Urine Protein 1+ H Urine Glucose (UA) Negative Urine Ketones Negative Urine Blood Negative Urine Nitrite Negative Urine Bilirubin Negative Urine Urobilinogen 2.0 Ur Leukocyte Esterase Negative Urine WBC (Auto) 1 Urine RBC (Auto) <1 Ur Epithelial Cells Rare Hyaline Casts 1 Urine Mucus Few RPR Titer HIV 1&2 Antibody Screen Negative HIV P24 Antigen Negative 03/02/18 03/02/18 06:00 06:00 WBC RBC Hgb Hct MCV MCH MCHC RDW Plt Count MPV Sodium 136 Potassium 4.0 Chloride 103 Carbon Dioxide 26 Anion Gap 7 L BUN 18 Creatinine 1.0 Creat Clearance w eGFR > 60 Random Glucose 144 H D Calcium 8.5 Total Bilirubin 0.4 D AST 24 ALT 23 Alkaline Phosphatase 119 H Total Protein 7.5 Albumin 3.2 L Urine Color Urine Appearance Urine pH Ur Specific [place] Urine Protein Urine Glucose (UA) Urine Ketones Urine Blood Urine Nitrite Urine Bilirubin Urine Urobilinogen Ur Leukocyte Esterase Urine WBC (Auto) Urine RBC (Auto) Ur Epithelial Cells Hyaline Casts Urine Mucus RPR Titer Nonreactive HIV 1&2 Antibody Screen HIV P24 Antigen Assessment: 03/04/18 11:53 WITHDRAWAL SX Plan: CONTINUE DETOX ON BACLFEN AND LIDOCAINE PATCH INCREASE PO FLUIDS.
[2018-03-04] MEDS: chlordiazePOXIDE HCL 10 MG CAPSULE PO SCH ×2 (17:21→22:39)
[2018-03-04] MEDS: THIAMINE HCL 100 MG TABLET (FP) PO SCH (22:39)
[2018-03-04] MEDS: LIDOCAINE PATCH REMOVAL MC SCH (22:40)
[2018-03-04] MEDS: MINERAL OIL/PETROLAT/WATER TOPICAL CREAM 113 GM JAR TP SCH (22:40)
[2018-03-05] MEDS: chlordiazePOXIDE HCL 10 MG CAPSULE PO SCH ×2 (05:09→10:45)
[2018-03-05] MEDS: BACLOFEN 10 MG TABLET (FP) PO SCH (05:09)
[2018-03-05 09:07] VITALS: BP 103/66; PULSE 73; TEMP 96.3
[2018-03-05] MEDS ORDERED: METHADONE HCL 10 MG TABLET (FOR DETOX USE ONLY) PO SCH (10:00)
--- NOTE | 2018-03-05 10:20 | PN ---
BHS Progress Note (SOAP) Subjective: PT REPORTS NO PAINS TODAY. OOB WITH CANE AND LEANING FORWARD GAIT ON AMBULATION. Objective: 03/05/18 10:20 Vital Signs 03/05/18 03/05/18 03/05/18 03:30 06:25 09:07 Temperature 96.9 F L 96.3 F L Pulse Rate 82 73 Respiratory 18 18 18 Rate Blood Pressure 121/71 103/66 Laboratory Tests 03/01/18 03/01/18 03/02/18 10:00 23:10 06:00 WBC 6.9 D RBC 4.17 Hgb 13.1 Hct 39.0 MCV 93.4 MCH 31.4 MCHC 33.6 RDW 14.4 Plt Count 202 MPV 8.6 Sodium Potassium Chloride Carbon Dioxide Anion Gap BUN Creatinine Creat Clearance w eGFR Random Glucose Calcium Total Bilirubin AST ALT Alkaline Phosphatase Total Protein Albumin Urine Color Thuy Urine Appearance Clear Urine pH 5.0 Ur Specific [place] 1.033 Urine Protein 1+ H Urine Glucose (UA) Negative Urine Ketones Negative Urine Blood Negative Urine Nitrite Negative Urine Bilirubin Negative Urine Urobilinogen 2.0 Ur Leukocyte Esterase Negative Urine WBC (Auto) 1 Urine RBC (Auto) <1 Ur Epithelial Cells Rare Hyaline Casts 1 Urine Mucus Few RPR Titer HIV 1&2 Antibody Screen Negative HIV P24 Antigen Negative 03/02/18 03/02/18 06:00 06:00 WBC RBC Hgb Hct MCV MCH MCHC RDW Plt Count MPV Sodium 136 Potassium 4.0 Chloride 103 Carbon Dioxide 26 Anion Gap 7 L BUN 18 Creatinine 1.0 Creat Clearance w eGFR > 60 Random Glucose 144 H D Calcium 8.5 Total Bilirubin 0.4 D AST 24 ALT 23 Alkaline Phosphatase 119 H Total Protein 7.5 Albumin 3.2 L Urine Color Urine Appearance Urine pH Ur Specific [place] Urine Protein Urine Glucose (UA) Urine Ketones Urine Blood Urine Nitrite Urine Bilirubin Urine Urobilinogen Ur Leukocyte Esterase Urine WBC (Auto) Urine RBC (Auto) Ur Epithelial Cells Hyaline Casts Urine Mucus RPR Titer Nonreactive HIV 1&2 Antibody Screen HIV P24 Antigen Assessment: 03/05/18 10:20 NAD Plan: CONTINUE DETOX
[2018-03-05] MEDS: LIDOCAINE 5% TOPICAL PATCH TP SCH (10:45)
[2018-03-05] MEDS: PRENATAL VITAMINS W/ FOLIC ACID TABLET (FP) PO SCH (10:45)
[2018-03-05] MEDS: NICOTINE 21 MG/24 HOURS TOPICAL PATCH TD SCH (10:45)
[2018-03-05] MEDS: TOBRAMYCIN/DEXAMETHASONE OPHTH. OINTMENT 1 TUBE OD SCH (10:45)
--- NOTE | 2018-03-05 12:48 | PN ---
[facility] Progress Note Note: PT INSISTS ON DISCONTINUING DETOX EARLIER THAN SCHEDULE. PT STATES HE DOES NOT WANT ANY MEDICATION ANYMORE BECAUSE "IT'S ALL GARBAGE". PT STATES "I HAD PAIN ON MY LEFT SIDE AND BACK WHEN I CAME BUT I DON'T HAVE PAIN NOW ANYMORE. IT'S BORING IN HERE. [place] GOING [place]". PT STATES HE IS HOMELESS IN [place] AND GOES TO [facility] ER FOR CARE. PT WAS ENCOURAGED TO STAY IN TREATMENT AND GO TO REHAB BUT PT DECLINED ALL EFFORTS BY COUNSELOR AND OTHER MEDICAL TEAM. PT IS ALERT O X 3. NAD. AMBULATING WITH HIS CANE.
[2018-03-06] MEDS ORDERED: METHADONE HCL 5 MG TABLET (FOR DETOX USE ONLY) PO SCH (06:00)
== END 2018-03-05 11:18 | disposition left against medical advice (07) | DRG 770 ==
LOC: YASAS 12:00 → Y3N 15:57
PROVIDERS: ADMIT Surgery; ATTEND Surgery
PROC: HZ2ZZZZ Detoxification Services for Substance Abuse Treatment (ICD-10-PCS; principal; 2018-03-01)
DX: F11.23 Opioid dependence with withdrawal (principal); F10.230 Alcohol dependence with withdrawal, uncomplicated; F17.213 Nicotine dependence, cigarettes, with withdrawal; R00.0 Tachycardia, unspecified; R76.11 Nonspecific reaction to tuberculin skin test without active tuberculosis; B18.2 Chronic viral hepatitis C; L85.3 Xerosis cutis; M95.8 Other specified acquired deformities of musculoskeletal system; R26.2 Difficulty in walking, not elsewhere classified; Z99.89 Dependence on other enabling machines and devices; Z87.898 Personal history of other specified conditions; Z59.0 Homelessness
CPT/HCPCS: 36415; 80053; 81003; 81015; 85027; 86593; 87389; 93005; 93010; J0475

== ENCOUNTER 2018-06-18 12:28 | Inpatient (IN) | payer OTHER ==
[2018-06-18 12:47] VITALS: BMI 22.3
--- NOTE | 2018-06-18 14:29 | HP ---
COWS - Scale Resting Pulse: 0= [place] 80 or Below Sweatin= Chills/Flushing Restless Observation: 3= Extraneous Movement Pupil Size: 1= Pupils >than Normal Bone or Joint Aches: 2= Severe Diffuse Aches Runny Nose/ Eye Tearin= Runny Nose/Eyes GI Upset > 30mins: 2= Nausea/Diarrhea Tremor Observation: 2= Slight Tremor Visible Yawning Observation: 1= 1-2x During Session Anxiety or Irritability: 2=Irritable/Anxious Goose Flesh Skin: 0=Smooth Skin COWS Score: 16 CIWA Score - CIWA Score Nausea/Vomitin Muscle Tremors: 3 Anxiety: 2 Agitation: 2 Paroxysmal Sweats: 1-Minimal Palms Moist Orientation: 0-Oriented Tacttile Disturbances: 1-Very Mild Itch/Numbness Auditory Disturbances: 1-Very Mild Visual Disturbances: 0-None Headache: 2-Mild CIWA-Ar Total Score: 15 Admission ROS BHS - HPI Chief Complaint: i need help to stop using heroin,cocaine,alcohol Allergies/Adverse Reactions: Allergies Allergy/AdvReac Type Severity Reaction Status Date / Time No Known Allergies Allergy Verified 06/18/18 14:16 History of Present Illness: this 57 years old male with heroin,alcohol,cocaine dependence seeking detox,, seeking detox,last treatment 02/28/18 to 03/05/18 low back pain,pain in the legs ambulation with cane hepatitis c anxiety depression multiple admissions in detox but keep relapsing weight loss longest period of sobriety 9 years nicotine dependence Exam Limitations: No Limitations - Ebola screening Have you traveled outside of the country in the last 21 days: No Have you had contact with anyone from an Ebola affected area: No Have you been sick,other than usual withdrawal symptoms: No Do you have a fever: No - Review of Systems Constitutional: Chills, Diaphoresis, Loss of Appetite, Malaise, Night Sweats, Changes in sleep, Unintentional Wgt. Loss EENT: reports: Tearing, Nose Congestion Respiratory: reports: No Symptoms reported Cardiac: reports: Palpitations GI: reports: Diarrhea, Nausea, Vomiting, Abdominal cramping : reports: No Symptoms Reported Musculoskeletal: reports: Back Pain, Joint Pain, Muscle Pain Integumentary: reports: Dryness Neuro: reports: Headache, Tremors Endocrine: reports: No Symptoms Reported Hematology: reports: No Symptoms Reported Psychiatric: reports: Judgement Intact, Mood/Affect Appropiate, Orientated x3, Anxious, Depressed Patient History - Patient Medical History Hx Anemia: No Hx Asthma: No Hx Chronic Obstructive Pulmonary Disease (COPD): No Hx Cancer: No Hx Cardiac Disorders: No Hx Congestive Heart Failure: No Hx Hypertension: No Hx Hypercholesterolemia: No Hx Pacemaker: No HX Cerebrovascular Accident: No Hx Seizures: No Hx Dementia: No Hx Diabetes: No Hx Gastrointestinal Disorders: No Hx Liver Disease: Yes Hx Genitourinary Disorders: No Hx Sexually Transmitted Disorders: No Hx Renal Disease (ESRD): No Hx Thyroid Disease: No Hx Human Immunodeficiency Virus (HIV): No (last 05/12 negative) Hx Hepatitis C: Yes (treated) Hx Depression: Yes Hx Suicide Attempt: No Hx Bipolar Disorder: No Hx Schizophrenia: No Other Medical History: no suicidal,no homicidal,low back pain - Patient Surgical History Past Surgical History: No Hx Neurologic Surgery: No Hx Cataract Extraction: No Hx Cardiac Surgery: No Hx Lung Surgery: No Hx Breast Surgery: No Hx Breast Biopsy: No Hx Abdominal Surgery: No Hx Appendectomy: No Hx Cholecystectomy: No Hx Genitourinary Surgery: No Hx Section: No Hx Orthopedic Surgery: No Hx Hysterectomy: No Anesthesia Reaction: No - PPD History Previous Implant?: Yes Documented Results: Positive w/o proof Implanted On Prior [facility] Admission?: No PPD to be Administered?: No - Smoking Cessation Smoking history: Current every day smoker Have you smoked in the past 12 months: Yes Aproximately how many cigarettes per day: 40 Cigars Per Day: 0 Hx Chewing Tobacco Use: No Initiated information on smoking cessation: Yes 'Breaking Loose' booklet given: 06/18/18 - Substance & Tx. History Hx Alcohol Use: Yes Hx Substance Use: Yes Substance Use Type: Alcohol, Cocaine, Heroin Hx Substance Use Treatment: Yes ([facility] 03/01/18 to 03/05/18) - Substances Abused Heroin Route: Injection Frequency: Daily Amount used: 5 BAGS Age of first use: 29 Date of Last Use: 06/17/18 Alcohol Route: Oral Frequency: Daily Amount used: 2-3 22 OZ BEERS Age of first use: 18 Date of Last Use: 06/17/18 Cocaine Route: Smoking Frequency: 1-2 times per week Amount used: 2 BAGS AND UP Age of first use: 38 Date of Last Use: 06/17/18 Family Disease History - Family Disease History Family Disease History: Diabetes: Brother, Heart Disease: Mother (), Other: Father (), Mother Admission Physical Exam [facility] - Vital Signs Vital Signs: Vital Signs - 24 hr 06/18/18 12:45 Temperature 97.6 F Pulse Rate 67 Respiratory 18 Rate Blood Pressure 129/76 - Physical General Appearance: Yes: Moderate Distress, Tremorous, Irritable, Sweating HEENTM: Yes: Normal ENT Inspection, HAYLIE, Pharynx Normal Respiratory: Yes: Lungs Clear, Normal Breath Sounds, No Respiratory Distress Neck: Yes: Within Normal Limits, Supple, Trachea in good position Breast: Yes: Within Normal Limits Cardiology: Yes: Regular Rhythm, Regular Rate, S1, S2 Abdominal: Yes: Within Normal Limits, Normal Bowel Sounds, Non Tender, Soft Genitourinary: Yes: Within Normal Limits Back: Yes: Muscle Spasm Musculoskeletal: Yes: Back pain, Joint Stiffness, Muscle Pain Extremities: Yes: Normal Range of Motion, Tremors 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: 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 intact, Alert, Motor Strength 5/5 Integumentary: Yes: Dry Lymphatic: Yes: Within Normal Limits - Diagnostic (1) Opioid dependence with withdrawal Current Visit: No Status: Acute (2) Alcohol dependence with uncomplicated withdrawal Current Visit: No Status: Acute (3) Nicotine dependence Current Visit: No Status: Acute Qualifiers: Nicotine product type: cigarettes Substance use status: in withdrawal Qualified Code(s): F17.213 - Nicotine dependence, cigarettes, with withdrawal (4) Weight loss Current Visit: No Status: Acute (5) Use of cane as ambulatory aid Current Visit: No Status: Chronic (6) Cocaine dependence Current Visit: Yes Status: Acute Cleared for Admission [facility] - Detox or Rehab [facility] Level of Care: Medically Managed Detox Regimen/Protocol: Methadone/Librium [facility] Breath Alcohol Content Breath Alcohol Content: 0 Urine Drug Screen - Results Drug Screen Negative: No Urine Drug Screen Results: DEB-Cocaine, OPI-Opiates, FEN-Fentanyl
[2018-06-18] MEDS ORDERED: chlordiazePOXIDE HCL 25 MG CAPSULE PO PRN (14:39)
[2018-06-18] MEDS ORDERED: P-EPHED 60MG/TRIPROLIDI 2.5MG TABLET PO PRN (14:39)
[2018-06-18] MEDS ORDERED: MAGNESIUM HYDROX 2400MG/30ML ORAL SUSPENSION 30 ML CUP PO PRN (14:39)
[2018-06-18] MEDS ORDERED: MENTHOL/PHENOL 1 EACH UD MM PRN (14:39)
[2018-06-18] MEDS ORDERED: LOPERAMIDE HCL 2 MG CAPSULE PO PRN (14:39)
[2018-06-18] MEDS ORDERED: MAGNESIUM CITRATE 300 ML BOTTLE PO PRN (14:39)
[2018-06-18] MEDS ORDERED: NICOTINE POLACRILEX 2 MG GUM BUC PRN (14:39)
[2018-06-18] MEDS ORDERED: MAG HYDROX/AL HYDROX/SIMETH 30 ML UNIT-DOSE CUP PO PRN (14:39)
[2018-06-18] MEDS ORDERED: hydrOXYzine PAMOATE 25 MG CAPSULE (FP) PO PRN (14:39)
[2018-06-18] MEDS ORDERED: ACETAMINOPHEN 325 MG TABLET (FP) PO PRN (14:39)
[2018-06-18] MEDS ORDERED: guaiFENesin/D-METHORPHAN HB 10 ML UNIT-DOSE CUPS PO PRN (14:39)
[2018-06-18] MEDS ORDERED: IBUPROFEN 400 MG TABLET (FP) PO PRN (14:39)
[2018-06-18] MEDS ORDERED: METHADONE HCL 10 MG TABLET (FOR DETOX USE ONLY) PO ONE ×2 (15:00→23:00)
[2018-06-18] MEDS: NICOTINE 21 MG/24 HOURS TOPICAL PATCH TD SCH (15:50)
[2018-06-18] MEDS: chlordiazePOXIDE HCL 25 MG CAPSULE PO SCH ×2 (17:19→22:48)
[2018-06-18 18:23] LABS: URINE APPEARANCE TURBID; URINE BILIRUBIN NEGATIVE (<2.0 mg/dL); URINE COLOR YELLOW; URINE GLUCOSE (UA) NEGATIVE (NEGATIVE); URINE KETONE NEGATIVE (NEGATIVE); URINE LEUK ESTERASE NEGATIVE (NEGATIVE); URINE NITRITE NEGATIVE (NEGATIVE)
[2018-06-18 18:24] LABS: URINE PROTEIN 1+ (NEGATIVE)
[2018-06-18 18:27] LABS: EPI CELLS RARE /HPF (FEW); URINE MUCUS FEW
[2018-06-18] MEDS ORDERED: MELATONIN 5 MG TABLETS PO PRN (22:00)
[2018-06-18] MEDS: THIAMINE HCL 100 MG TABLET (FP) PO SCH (22:48)
[2018-06-19] MEDS: chlordiazePOXIDE HCL 25 MG CAPSULE PO SCH ×4 (05:57→23:26)
[2018-06-19] MEDS ORDERED: METHADONE HCL 10 MG TABLET (FOR DETOX USE ONLY) PO SCH (10:00)
[2018-06-19] MEDS: PRENATAL VITAMINS W/ FOLIC ACID TABLET (FP) PO SCH (10:27)
[2018-06-19] MEDS: NICOTINE 21 MG/24 HOURS TOPICAL PATCH TD SCH (10:27)
[2018-06-19 10:52] LABS: HEMATOCRIT 41.7 % (35.4-49); HEMOGLOBIN 13.9 GM/dL (11.7-16.9); MCH 31.8 pg (25.7-33.7); MCHC 33.3 g/dl (32.0-35.9); MEAN CELL VOLUME 95.5 fl (80-96); MEAN PLT VOLUME 8.6 fl (7.5-11.1); PLATELET COUNT 237 K/MM3 (134-434); RBC 4.37 M/mm3 (4.00-5.60); RDW 14.3 % (11.9-15.9); WHITE BLOOD COUNT 4.1 K/mm3 (4.0-10.0)
--- NOTE | 2018-06-19 11:02 | EKG ---
Test Reason : Blood Pressure : / mmHG Vent. Rate : 058 BPM Atrial Rate : 058 BPM P-R Int : 118 ms QRS Dur : 074 ms QT Int : 404 ms P-R-T Axes : 052 046 018 degrees QTc Int : 396 ms SINUS BRADYCARDIA OTHERWISE NORMAL ECG Confirmed by MD AJAY, PAM ([id number]) on 06/19/2018 11:02:28 AM Referred By: Confirmed By:PAM MOSS MD
[2018-06-19 11:45] LABS: ALBUMIN 3.1 g/dl (3.4-5.0); ALK PHOS 118 U/L (45-117); ANION GAP 11 MMOL/L (8-16); BILIRUBIN,TOTAL 0.6 mg/dL (0.2-1); BLOOD UREA NITROGEN 14 mg/dL (7-18); CALCIUM 8.9 mg/dL (8.5-10.1); CHLORIDE 107 mmol/L (98-107); CO2 23 mmol/L (21-32); CREATININE 0.8 mg/dL (0.55-1.3); GLUCOSE,RANDOM 88 mg/dL (74-106); POTASSIUM 5.3 mmol/L (3.5-5.1); SGOT/AST 32 U/L (15-37); SGPT/ALT 26 U/L (13-61); SODIUM 141 mmol/L (136-145); TOT PROT 7.6 g/dl (6.4-8.2)
--- NOTE | 2018-06-19 14:16 | CONSULT ---
[facility] Psychiatric Consult - Data Date of interview: 06/19/18 Admission source: [facility] Identifying data: Patient approached twice for psychiatric consultation. Pt. refused. Stated, " I do not need to speak to you." Nursing staff informed.
--- NOTE | 2018-06-19 17:00 | PN ---
[facility] CIWA - CIWA Score Nausea/Vomitin-Mild Nausea/No Vomiting Muscle Tremors: 4-Moderate,w/Arms Extend Anxiety: 3 Agitation: 4-Moderately Restless Paroxysmal Sweats: 1-Minimal Palms Moist Orientation: 0-Oriented Tacttile Disturbances: 0-None Auditory Disturbances: 0-None Visual Disturbances: 0-None Headache: 0-None Present CIWA-Ar Total Score: 13 BHS COWS - Scale Resting Pulse: 0= [place] 80 or Below Sweatin= Chills/Flushing Restless Observation: 1= Difficult to Sit Still Pupil Size: 0= Normal to Room Light Bone or Joint Aches: 1= Mild Discomfort Runny Nose/ Eye Tearin= Nasal Congestion GI Upset > 30mins: 2= Nausea/Diarrhea Tremor Observation of Outstretched Hands: 2= Slight Tremor Visible Yawning Observation: 1= 1-2x During Session Anxiety or Irritability: 1=Feels Anxious/Irritable Goose Flesh Skin: 3=Piloerection COWS Score: 13 S Progress Note (SOAP) Subjective: body ache joint pain sweat tremor anxiety Objective: 06/19/18 16:58 Vital Signs Temperature 98.4 F 06/19/18 13:10 Pulse Rate 72 06/19/18 13:10 Respiratory Rate 18 06/19/18 13:10 Blood Pressure 139/86 06/19/18 13:10 O2 Sat by Pulse Oximetry (%) Laboratory Last Values WBC 4.1 K/mm3 (4.0-10.0) 06/19/18 06:00 RBC 4.37 M/mm3 (4.00-5.60) 06/19/18 06:00 Hgb 13.9 GM/dL (11.7-16.9) 06/19/18 06:00 Hct 41.7 % (35.4-49) 06/19/18 06:00 MCV 95.5 fl (80-96) 06/19/18 06:00 MCH 31.8 pg (25.7-33.7) 06/19/18 06:00 MCHC 33.3 g/dl (32.0-35.9) 06/19/18 06:00 RDW 14.3 % (11.9-15.9) 06/19/18 06:00 Plt Count 237 K/MM3 (134-434) 06/19/18 06:00 MPV 8.6 fl (7.5-11.1) 06/19/18 06:00 Sodium 141 mmol/L (136-145) 06/19/18 06:00 Potassium 5.3 mmol/L (3.5-5.1) H 06/19/18 06:00 Chloride 107 mmol/L (98-107) 06/19/18 06:00 Carbon Dioxide 23 mmol/L (21-32) 06/19/18 06:00 Anion Gap 11 MMOL/L (8-16) 06/19/18 06:00 BUN 14 mg/dL (7-18) 06/19/18 06:00 Creatinine 0.8 mg/dL (0.55-1.3) 06/19/18 06:00 Creat Clearance w eGFR > 60 (>60) 06/19/18 06:00 Random Glucose 88 mg/dL (74-106) 06/19/18 06:00 Calcium 8.9 mg/dL (8.5-10.1) 06/19/18 06:00 Total Bilirubin 0.6 mg/dL (0.2-1) 06/19/18 06:00 AST 32 U/L (15-37) 06/19/18 06:00 ALT 26 U/L (13-61) 06/19/18 06:00 Alkaline Phosphatase 118 U/L (45-117) H 06/19/18 06:00 Total Protein 7.6 g/dl (6.4-8.2) 06/19/18 06:00 Albumin 3.1 g/dl (3.4-5.0) L 06/19/18 06:00 Urine Color Yellow 06/18/18 12:08 Urine Appearance Turbid 06/18/18 12:08 Urine pH 5.0 (5.0-8.0) 06/18/18 12:08 Ur Specific [place] 1.029 (1.001-1.035) 06/18/18 12:08 Urine Protein 1+ (NEGATIVE) H 06/18/18 12:08 Urine Glucose (UA) Negative (NEGATIVE) 06/18/18 12:08 Urine Ketones Negative (NEGATIVE) 06/18/18 12:08 Urine Blood Negative (NEGATIVE) 06/18/18 12:08 Urine Nitrite Negative (NEGATIVE) 06/18/18 12:08 Urine Bilirubin Negative (<2.0 mg/dL) 06/18/18 12:08 Urine Urobilinogen 2.0 mg/dL (0.2-1.0) 06/18/18 12:08 Ur Leukocyte Esterase Negative (NEGATIVE) 06/18/18 12:08 Urine WBC (Auto) 58 /hpf (3-5) 06/18/18 12:08 Urine RBC (Auto) 1 /hpf (0-3) 06/18/18 12:08 Ur Epithelial Cells Rare /HPF (FEW) 06/18/18 12:08 Urine Mucus Few 06/18/18 12:08 RPR Titer Nonreactive (NONREACTIVE) 06/19/18 06:00 lab noted K+ elevation jpatient wants to have chest x ray for + ppd 06/19/18 16:59 Assessment: 06/19/18 17:00 withdrawal sx Plan: continue detox
[2018-06-19] MEDS: THIAMINE HCL 100 MG TABLET (FP) PO SCH (23:25)
[2018-06-19] MEDS: CEPHALEXIN MONOHYDRATE 500 MG CAPSULE (UD) PO SCH (23:26)
[2018-06-20] MEDS: CEPHALEXIN MONOHYDRATE 500 MG CAPSULE (UD) PO SCH ×3 (07:00→18:10)
[2018-06-20] MEDS: chlordiazePOXIDE HCL 25 MG CAPSULE PO SCH ×2 (07:00→10:45)
[2018-06-20] MEDS: PRENATAL VITAMINS W/ FOLIC ACID TABLET (FP) PO SCH (10:45)
[2018-06-20] MEDS: METHADONE HCL 5 MG TABLET (FOR DETOX USE ONLY) PO SCH (10:45)
[2018-06-20] MEDS: NICOTINE 21 MG/24 HOURS TOPICAL PATCH TD SCH (10:45)
--- NOTE | 2018-06-20 12:52 | PN ---
[facility] CIWA - CIWA Score Nausea/Vomitin-No Nausea/No Vomiting Muscle Tremors: 4-Moderate,w/Arms Extend Anxiety: 2 Agitation: 3 Paroxysmal Sweats: 1-Minimal Palms Moist Orientation: 0-Oriented Tacttile Disturbances: 1-Very Mild Itch/Numbness Auditory Disturbances: 0-None Visual Disturbances: 0-None Headache: 0-None Present CIWA-Ar Total Score: 11 S COWS - Scale Resting Pulse: 0= [place] 80 or Below Sweatin= Chills/Flushing Restless Observation: 1= Difficult to Sit Still Pupil Size: 0= Normal to Room Light Bone or Joint Aches: 1= Mild Discomfort Runny Nose/ Eye Tearin= Nasal Congestion GI Upset > 30mins: 1= Stomach Cramp Tremor Observation of Outstretched Hands: 2= Slight Tremor Visible Yawning Observation: 2= >3x During Session Anxiety or Irritability: 2=Irritable/Anxious Goose Flesh Skin: 0=Smooth Skin COWS Score: 11 [facility] Progress Note (SOAP) Subjective: sweat tremor anxiety restlessness feeling better to walking around the hallway wants to wear own shoes Objective: 06/20/18 13:00 Vital Signs Temperature 98.2 F 06/20/18 09:31 Pulse Rate 87 06/20/18 09:31 Respiratory Rate 16 06/20/18 09:31 Blood Pressure 129/77 06/20/18 09:31 O2 Sat by Pulse Oximetry (%) Laboratory Last Values WBC 4.1 K/mm3 (4.0-10.0) 06/19/18 06:00 RBC 4.37 M/mm3 (4.00-5.60) 06/19/18 06:00 Hgb 13.9 GM/dL (11.7-16.9) 06/19/18 06:00 Hct 41.7 % (35.4-49) 06/19/18 06:00 MCV 95.5 fl (80-96) 06/19/18 06:00 MCH 31.8 pg (25.7-33.7) 06/19/18 06:00 MCHC 33.3 g/dl (32.0-35.9) 06/19/18 06:00 RDW 14.3 % (11.9-15.9) 06/19/18 06:00 Plt Count 237 K/MM3 (134-434) 06/19/18 06:00 MPV 8.6 fl (7.5-11.1) 06/19/18 06:00 Sodium 141 mmol/L (136-145) 06/19/18 06:00 Potassium 5.3 mmol/L (3.5-5.1) H 06/19/18 06:00 Chloride 107 mmol/L (98-107) 06/19/18 06:00 Carbon Dioxide 23 mmol/L (21-32) 06/19/18 06:00 Anion Gap 11 MMOL/L (8-16) 06/19/18 06:00 BUN 14 mg/dL (7-18) 06/19/18 06:00 Creatinine 0.8 mg/dL (0.55-1.3) 06/19/18 06:00 Creat Clearance w eGFR > 60 (>60) 06/19/18 06:00 Random Glucose 88 mg/dL (74-106) 06/19/18 06:00 Calcium 8.9 mg/dL (8.5-10.1) 06/19/18 06:00 Total Bilirubin 0.6 mg/dL (0.2-1) 06/19/18 06:00 AST 32 U/L (15-37) 06/19/18 06:00 ALT 26 U/L (13-61) 06/19/18 06:00 Alkaline Phosphatase 118 U/L (45-117) H 06/19/18 06:00 Total Protein 7.6 g/dl (6.4-8.2) 06/19/18 06:00 Albumin 3.1 g/dl (3.4-5.0) L 06/19/18 06:00 Urine Color Yellow 06/18/18 12:08 Urine Appearance Turbid 06/18/18 12:08 Urine pH 5.0 (5.0-8.0) 06/18/18 12:08 Ur Specific [place] 1.029 (1.001-1.035) 06/18/18 12:08 Urine Protein 1+ (NEGATIVE) H 06/18/18 12:08 Urine Glucose (UA) Negative (NEGATIVE) 06/18/18 12:08 Urine Ketones Negative (NEGATIVE) 06/18/18 12:08 Urine Blood Negative (NEGATIVE) 06/18/18 12:08 Urine Nitrite Negative (NEGATIVE) 06/18/18 12:08 Urine Bilirubin Negative (<2.0 mg/dL) 06/18/18 12:08 Urine Urobilinogen 2.0 mg/dL (0.2-1.0) 06/18/18 12:08 Ur Leukocyte Esterase Negative (NEGATIVE) 06/18/18 12:08 Urine WBC (Auto) 58 /hpf (3-5) 06/18/18 12:08 Urine RBC (Auto) 1 /hpf (0-3) 06/18/18 12:08 Ur Epithelial Cells Rare /HPF (FEW) 06/18/18 12:08 Urine Mucus Few 06/18/18 12:08 RPR Titer Nonreactive (NONREACTIVE) 06/19/18 06:00 lab noted Assessment: 06/20/18 13:03 alcohol and opiate withdrawal sx Plan: continue detox
[2018-06-20] MEDS: chlordiazePOXIDE 5 MG CAPSULE PO SCH ×2 (18:10→22:55)
[2018-06-20] MEDS: THIAMINE HCL 100 MG TABLET (FP) PO SCH (22:55)
[2018-06-21] MEDS: chlordiazePOXIDE 5 MG CAPSULE PO SCH ×2 (06:06→10:08)
[2018-06-21] MEDS: CEPHALEXIN MONOHYDRATE 500 MG CAPSULE (UD) PO SCH ×4 (08:05→23:50)
[2018-06-21] MEDS: PRENATAL VITAMINS W/ FOLIC ACID TABLET (FP) PO SCH (10:05)
[2018-06-21] MEDS: NICOTINE 21 MG/24 HOURS TOPICAL PATCH TD SCH (10:05)
[2018-06-21] MEDS: METHADONE HCL 5 MG TABLET (FOR DETOX USE ONLY) PO SCH (10:06)
--- NOTE | 2018-06-21 14:12 | PN ---
[facility] Progress Note Note: Patient tolerating detox well. No complaints offered. Laboratory Tests 06/18/18 06/19/18 06/19/18 12:08 06:00 06:00 WBC 4.1 RBC 4.37 Hgb 13.9 Hct 41.7 MCV 95.5 MCH 31.8 MCHC 33.3 RDW 14.3 Plt Count 237 MPV 8.6 Sodium 141 Potassium 5.3 H Chloride 107 Carbon Dioxide 23 Anion Gap 11 BUN 14 Creatinine 0.8 Creat Clearance w eGFR > 60 Random Glucose 88 Calcium 8.9 Total Bilirubin 0.6 AST 32 ALT 26 Alkaline Phosphatase 118 H Total Protein 7.6 Albumin 3.1 L Urine Color Yellow Urine Appearance Turbid Urine pH 5.0 Ur Specific [place] 1.029 Urine Protein 1+ H Urine Glucose (UA) Negative Urine Ketones Negative Urine Blood Negative Urine Nitrite Negative Urine Bilirubin Negative Urine Urobilinogen 2.0 Ur Leukocyte Esterase Negative Urine WBC (Auto) 58 Urine RBC (Auto) 1 Ur Epithelial Cells Rare Urine Mucus Few RPR Titer 06/19/18 06/21/18 06:00 07:00 WBC RBC Hgb Hct MCV MCH MCHC RDW Plt Count MPV Sodium Potassium 4.5 Chloride Carbon Dioxide Anion Gap BUN Creatinine Creat Clearance w eGFR Random Glucose Calcium Total Bilirubin AST ALT Alkaline Phosphatase Total Protein Albumin Urine Color Urine Appearance Urine pH Ur Specific [place] Urine Protein Urine Glucose (UA) Urine Ketones Urine Blood Urine Nitrite Urine Bilirubin Urine Urobilinogen Ur Leukocyte Esterase Urine WBC (Auto) Urine RBC (Auto) Ur Epithelial Cells Urine Mucus RPR Titer Nonreactive Vital Signs Period Temp Pulse Resp BP Sys/Lockhart Pulse Ox Last 24 Hr 98.1 F-98.1 F 81-89 18-18 98-136/61-83 PE: alert and oriented x 3. skin warm and dry car s1s2 resp cta bl a/p: withdrawal syndrome continue detox as per protocol encourage oral fluids continue to monitor clinically
[2018-06-21] MEDS: chlordiazePOXIDE HCL 10 MG CAPSULE PO SCH ×2 (17:04→22:31)
[2018-06-21] MEDS: THIAMINE HCL 100 MG TABLET (FP) PO SCH (22:30)
[2018-06-22] MEDS: chlordiazePOXIDE HCL 10 MG CAPSULE PO SCH ×2 (07:02→10:58)
[2018-06-22] MEDS: CEPHALEXIN MONOHYDRATE 500 MG CAPSULE (UD) PO SCH ×2 (07:02→14:27)
[2018-06-22] MEDS ORDERED: METHADONE HCL 10 MG TABLET (FOR DETOX USE ONLY) PO SCH (10:00)
[2018-06-22] MEDS: PRENATAL VITAMINS W/ FOLIC ACID TABLET (FP) PO SCH (10:58)
[2018-06-22] MEDS: NICOTINE 21 MG/24 HOURS TOPICAL PATCH TD SCH (10:59)
--- NOTE | 2018-06-22 11:28 | PN ---
[facility] Progress Note (SOAP) Subjective: sweats Objective: 06/22/18 11:27 Vital Signs Temperature 96.8 F L 06/22/18 09:27 Pulse Rate 70 06/22/18 09:27 Respiratory Rate 16 06/22/18 09:27 Blood Pressure 100/59 L 06/22/18 09:27 O2 Sat by Pulse Oximetry (%) aaox3 ambulating no acute distress Assessment: 06/22/18 11:27 mild withdrawal sx Plan: continue detox d/c in am
[2018-06-22 18:03] VITALS: BP 111/69; PULSE 76; TEMP 97.3
[2018-06-23] MEDS ORDERED: METHADONE HCL 5 MG TABLET (FOR DETOX USE ONLY) PO SCH (06:00)
== END 2018-06-22 17:49 | disposition other institution (70) | DRG 773 ==
LOC: YASAS 12:28 → Y6N 14:50
PROC: HZ2ZZZZ Detoxification Services for Substance Abuse Treatment (ICD-10-PCS; principal; 2018-06-18)
DX: F11.23 Opioid dependence with withdrawal (principal); F10.230 Alcohol dependence with withdrawal, uncomplicated; F14.20 Cocaine dependence, uncomplicated; F17.213 Nicotine dependence, cigarettes, with withdrawal; F32.9 Major depressive disorder, single episode, unspecified; B18.2 Chronic viral hepatitis C; M54.5 Low back pain; M79.604 Pain in right leg; M79.605 Pain in left leg; R63.4 Abnormal weight loss; Z68.22 Body mass index [BMI] 22.0-22.9, adult; R26.89 Other abnormalities of gait and mobility; Z99.89 Dependence on other enabling machines and devices; Z59.0 Homelessness
CPT/HCPCS: 36415; 71045-TC-FY; 80053; 81003; 81015; 84132; 85027; 86593; 93005; 93010

== ENCOUNTER 2018-06-22 18:08 | Inpatient (IN) | payer OTHER ==
[2018-06-22] MEDS ORDERED: IBUPROFEN 400 MG TABLET (FP) PO PRN (19:19)
[2018-06-22] MEDS ORDERED: MAGNESIUM CITRATE 300 ML BOTTLE PO PRN (19:19)
[2018-06-22] MEDS ORDERED: ACETAMINOPHEN 325 MG TABLET (FP) PO PRN (19:19)
[2018-06-22] MEDS ORDERED: MAG HYDROX/AL HYDROX/SIMETH 30 ML UNIT-DOSE CUP PO PRN (19:19)
[2018-06-22] MEDS ORDERED: P-EPHED 60MG/TRIPROLIDI 2.5MG TABLET PO PRN (19:19)
[2018-06-22] MEDS ORDERED: hydrOXYzine PAMOATE 50 MG CAPSULE (FP) PO PRN (19:19)
[2018-06-22] MEDS ORDERED: MAGNESIUM HYDROX 2400MG/30ML ORAL SUSPENSION 30 ML CUP PO PRN (19:19)
[2018-06-22] MEDS ORDERED: LOPERAMIDE HCL 2 MG CAPSULE PO PRN (19:19)
[2018-06-22] MEDS ORDERED: NICOTINE POLACRILEX 2 MG GUM BUC PRN (19:19)
[2018-06-22] MEDS ORDERED: guaiFENesin/D-METHORPHAN HB 10 ML UNIT-DOSE CUPS PO PRN (19:19)
[2018-06-22] MEDS ORDERED: MENTHOL/PHENOL 1 EACH UD MM PRN (19:19)
--- NOTE | 2018-06-22 19:22 | HP ---
[facility] Re[facility] Assess/Revision - Admission History Admitted to Rehab from: [facility] Date of Admission to Rehab: 06/22/2018 - Findings Detox History & Physical reviewed: Yes Concur with findings: Yes Comments/Additional Findings: Patient tolerated detox protocol. Inpatient Rehab Admission - Initial Determination Are CD services needed?: Yes Free of communicable disease: Yes Not in need of hospitalization: Yes - Rehab Admission Criteria Previous failed treatment: Yes Poor recovery environment: Yes Comorbidities: Yes Lacks judgement: No Patient is meeting Inpatient Rehab admission criteria:: Yes
[2018-06-22] MEDS: MELATONIN 5 MG TABLETS PO PRN (21:13)
[2018-06-22] MEDS: THIAMINE HCL 100 MG TABLET (FP) PO SCH (21:13)
[2018-06-23] MEDS: NICOTINE 21 MG/24 HOURS TOPICAL PATCH TD SCH (11:08)
[2018-06-23] MEDS: PRENATAL VITAMINS W/ FOLIC ACID TABLET (FP) PO SCH (11:08)
[2018-06-23] MEDS: THIAMINE HCL 100 MG TABLET (FP) PO SCH (22:12)
[2018-06-24] MEDS: NICOTINE 21 MG/24 HOURS TOPICAL PATCH TD SCH (10:51)
[2018-06-24] MEDS: PRENATAL VITAMINS W/ FOLIC ACID TABLET (FP) PO SCH (10:54)
[2018-06-24] MEDS: THIAMINE HCL 100 MG TABLET (FP) PO SCH (21:12)
[2018-06-24] MEDS: MELATONIN 5 MG TABLETS PO PRN (21:12)
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
[2018-06-25] MEDS: PRENATAL VITAMINS W/ FOLIC ACID TABLET (FP) PO SCH (11:00)
[2018-06-25] MEDS: NICOTINE 21 MG/24 HOURS TOPICAL PATCH TD SCH (11:00)
[2018-06-25] MEDS: QUEtiapine FUMARATE 100 MG TABLET (FP) PO SCH (21:12)
[2018-06-25] MEDS: THIAMINE HCL 100 MG TABLET (FP) PO SCH (21:12)
[2018-06-26 07:04] VITALS: BP 138/87; PULSE 73; TEMP 98.8
[2018-06-26] MEDS: NICOTINE 21 MG/24 HOURS TOPICAL PATCH TD SCH (09:56)
[2018-06-26] MEDS: PRENATAL VITAMINS W/ FOLIC ACID TABLET (FP) PO SCH (10:30)
[2018-06-26] MEDS: QUEtiapine FUMARATE 100 MG TABLET (FP) PO SCH (21:11)
[2018-06-26] MEDS: THIAMINE HCL 100 MG TABLET (FP) PO SCH (21:11)
[2018-06-27] MEDS: PRENATAL VITAMINS W/ FOLIC ACID TABLET (FP) PO SCH (10:21)
[2018-06-27] MEDS: NICOTINE 21 MG/24 HOURS TOPICAL PATCH TD SCH (10:21)
== END 2018-06-27 11:20 | disposition left against medical advice (07) | DRG 770 ==
LOC: YASAS 18:08 → Y5N 18:09
PROVIDERS: ADMIT Psychiatry & Neurology Psychiatry; ATTEND Psychiatry & Neurology Psychiatry
PROC: HZ42ZZZ Group Counseling for Substance Abuse Treatment, Cognitive-Behavioral (ICD-10-PCS; principal; 2018-06-22)
DX: F11.20 Opioid dependence, uncomplicated (principal); F10.20 Alcohol dependence, uncomplicated; F14.20 Cocaine dependence, uncomplicated; F17.210 Nicotine dependence, cigarettes, uncomplicated; F33.9 Major depressive disorder, recurrent, unspecified; F19.24 Other psychoactive substance dependence with psychoactive substance-induced mood disorder; F19.282 Other psychoactive substance dependence with psychoactive substance-induced sleep disorder; B18.2 Chronic viral hepatitis C; R76.11 Nonspecific reaction to tuberculin skin test without active tuberculosis; R26.2 Difficulty in walking, not elsewhere classified; Z99.89 Dependence on other enabling machines and devices; S33.5XXS Sprain of ligaments of lumbar spine, sequela; X58.XXXS Exposure to other specified factors, sequela; Z59.0 Homelessness